=== PATIENT | male | born 1960 | race Native Hawaiian/Other Pacific Islander ===

== ENCOUNTER 2021-03-11 14:38 | Outpatient (CLI) | payer OTHER | END 2021-03-11 21:05 | disposition home or self-care (01) | LOC: RESP 14:38 → US 15:00 → RESP 21:05 | PROVIDERS: ATTEND Internal Medicine Cardiovascular Disease | DX: R01.1 Cardiac murmur, unspecified (principal); R09.89 Other specified symptoms and signs involving the circulatory and respiratory systems ==

== ENCOUNTER 2021-08-29 07:10 | Emergency (ER) | payer OTHER ==
[~2021-08-29] VITALS: Ht 182.9 cm; Wt 99.8 kg
[2021-08-29 07:14] VITALS: BP 172/82; TEMP 98.7
== END 2021-08-29 08:48 | disposition home or self-care (01) ==
LOC: ED 07:10
DX: S00.83XA Contusion of other part of head, initial encounter (principal); S00.81XA Abrasion of other part of head, initial encounter; W22.8XXA Striking against or struck by other objects, initial encounter; Y92.89 Other specified places as the place of occurrence of the external cause
CPT/HCPCS: 96372; 99283; J0690; J1885

== ENCOUNTER 2022-04-25 13:59 | Outpatient (CLI) | payer OTHER | END 2022-04-25 19:21 | disposition home or self-care (01) | LOC: MRI 13:59 | PROVIDERS: ATTEND Nurse Practitioner | DX: R20.0 Anesthesia of skin (principal) ==

== ENCOUNTER 2022-06-06 14:41 | Outpatient (CLI) | payer OTHER | END 2022-06-06 19:45 | disposition home or self-care (01) | LOC: RAD 14:41 | PROVIDERS: ATTEND Nurse Practitioner | DX: M54.16 Radiculopathy, lumbar region (principal) ==

== ENCOUNTER 2022-06-20 12:23 | Outpatient (CLI) | payer OTHER | END 2022-06-20 23:21 | disposition home or self-care (01) | LOC: MRI 12:23 | PROVIDERS: ATTEND Nurse Practitioner | DX: M25.552 Pain in left hip (principal); M54.16 Radiculopathy, lumbar region ==